=== PATIENT | male | born 1985 | race Caucasian/White ===

== ENCOUNTER 2018-06-10 13:30 | Emergency (ER) | payer OTHER, MEDICAID, SELFPAY ==
[2018-06-10 13:45] VITALS: BP 147/88; PULSE 90; RESP 18; O2SAT 97
--- NOTE | 2018-06-10 15:02 | ED.RECABL ---
HPI - Recheck/Abnormal Lab/Rx General Chief Complaint: Recheck/Abnormal Lab/Rx Stated Complaint: TYPE 1 DIABETIC, OUT OF MEDS. Time Seen by Provider: 06/10/18 14:42 Source: patient Mode of arrival: ambulatory Limitations: no limitations History of Present Illness HPI narrative: This is a 32-year-old male who comes to the emergency department requesting refill for his Levemir as well as NovoLog 70 30. Patient states that he also broke his a calm manner. Patient states he has been on the NovoLog for about a week but he still has the Levemir. He was living in [place] with they had to leave because her housing situation changed. He came to this area as he has family here but has very X restricted finances and he has difficulty paying for his medications. He states in [place] he had was a part of a program that covered his insulin and supplies. Patient states sugars tend to run between 120 and 150. He has not noted any similar symptoms of being in DKA. He was diagnosed at the age of 27 when he was in diabetic ketoacidosis and hospitalized. Patient has not had any increase in thirst, he has not noticed any increase in urination, no abdominal pain, no chest pain or shortness of breath. No fevers. No wounds or injuries to the skin. No other GI or urinary symptoms noted. Related Data Previous Rx's Medication Instructions Recorded blood-glucose meter #1 each 06/10/18 insulin asp prt-insulin aspart See Rx Instructions .ROUTE 06/10/18 [Novolog Mix 70-30 U-100 Insuln] .COMPLEX #10 ml insulin detemir U-100 [Levemir 22 unit SUBCUT BID #10 ml 06/10/18 U-100 Insulin] insulin syringe,safetyneedle #100 each 06/10/18 Review of Systems Review of Systems ROS Unobtainable: All systems reviewed & are unremarkable except as noted in HPI and below Constitutional Denies chills, Denies fatigue, Denies fever(s), Denies headache(s), Denies lethargy and Denies weakness ENT Ears, Nose, Mouth, and Throat: Denies headache(s) and Denies nasal congestion Cardiovascular Denies chest pain, Denies irregular heart rhythm, Denies lightheadedness, Denies palpitations, Denies dyspnea, Denies dyspnea on exertion and Denies orthopnea Respiratory Denies chest congestion, Denies cough, Denies dyspnea, Denies dyspnea on exertion and Denies wheezing Gastrointestinal Gastrointestinal: Denies abdominal pain, Denies change in bowel habits, Denies diarrhea, Denies nausea and Denies vomiting Genitourinary Denies hematuria, Denies difficulty urinating, Denies dysuria, Denies flank pain, Denies urinary frequency, Denies urinary hesitancy, Denies urinary incontinence and Denies urinary urgency Musculoskeletal Denies tingling Integumentary/Breasts Denies non-healing lesions, Denies rash and Denies skin ulcer Neurologic Denies headache(s), Denies sensory deficit, Denies tingling, Denies paresthesias and Denies weakness Endocrine Reports as per HPI, Denies fatigue, Denies polydipsia, Denies polyuria and Denies palpitations Allergic/Immunologic Denies wheezing PFSH Medical History Insulin dependent diabetes mellitus (Acute) Exam Narrative Exam Narrative: GENERAL: Alert and oriented x three, well-nourished, well-appearing male in no acute distress. HEENT: Head normocephalic, atraumatic, EOMI, pupils reactive, face symmetric, moist mucous membranes NECK: Supple, full range of motion CARDIOVASCULAR: Regular rate and rhythm without murmurs, rubs or gallops. RESPIRATORY: Breath sounds equal bilaterally, no wheezes rales or rhonchi. ABDOMEN: Soft, nontender. Normoactive bowel sounds all 4 quadrants. No guarding or rebound, rigidity, no mass : No CVA tenderness EXTREMITIES: Normal range of motion, no clubbing or edema. Neurovascularly intact NEUROLOGICAL: Cranial nerves II through XII grossly intact. Moving all extremities SKIN: Warm, dry, no petechiae, no rashes or lesions. Initial Vital Signs Initial Vital Signs: Vital Signs Pulse Rate 90 06/10/18 13:45 Respiratory Rate 18 06/10/18 13:45 Blood Pressure 147/88 H 06/10/18 13:45 Pulse Oximetry 97 06/10/18 13:45 Course Orders Ordered: ED Orders 06/10/18 15:13 Consult to Service Order Expediter Stat Vital Signs - 8 hr 06/10/18 13:45 06/10/18 15:48 Pulse Rate 90 97 H Respiratory Rate 18 16 Blood Pressure [Right Arm] 147/88 H 132/85 Pulse Oximetry 97 97 MDM - Recheck/Abnormal Lab/Rx Differential Diagnosis Likely encounter for medication refill and other (hyperglycemia) Lab Data Attestation: I reviewed the patient's lab results. Point of Care Testing Glucose POC 318 MDM Narrative Medical decision making narrative: utility worker production was contacted to see if there are any program to help patient obtain his insulin and supplies the either reduced or free. [facility] and they will see if they can run the prescriptions as patient has Medicaid to see if they are covered for the patient. He was given a prescription for Levemir as well as NovoLog. He states he does a sliding scale based on his sugars and carb counting. The patient seems quite knowledgeable about his medications. He did state he broke his glucometer so is given a prescription for this as well as syringes and needles. Patient also has a number for [email or web address] that can possibly help with free medications. Discharge Plan Departure Patient Disposition: Home Clinical Impression: Encounter for medication refill, Hyperglycemia Discharge Date/Time: 06/10/18 16:33 Interventions: ED Discharge Assessment Last Done: 06/10/18 16:32 Instructions: DI for Hyperglycemia -- Adult Activity Restrictions/Additional Instructions: Follow up with primary care for future medication refills. Continue your levemir 22 units in the morning and evenings. Continue your Novolog 70/30 on sliding scale as prescribed. Use glucometer prior to meals and prior to sleep daily. Return for worsening sugars, abdominal pain, persistent vomiting, vision changes, frequent urination, altered mental status, severe headaches or other new or concerning changes. Prescriptions: New Levemir U-100 Insulin 100 unit/mL solution 22 unit SUBCUT BID Qty: 10 RF: 3 Novolog Mix 70-30 U-100 Insuln 100 unit/mL (70-30) solution See Rx Instructions .ROUTE .COMPLEX Qty: 10 RF: 3 blood-glucose meter kit .ROUTE .MEDSUPPLY Qty: 1 RF: 0 insulin syringe,safetyneedle 0.3 mL 29 x 1/2 syringe .ROUTE .MEDSUPPLY Qty: 100 RF: 3 Referrals: [facility] [Provider Group] [facility] [Provider Group] [facility] [Provider Group] [facility] [Provider Group] [facility] [Provider Group] Carley Lobo DO [Emergency Provider] -
--- NOTE | 2018-06-10 15:47 | ED_ITS ---
HPI - Recheck/Abnormal Lab/Rx General Chief Complaint: Recheck/Abnormal Lab/Rx Stated Complaint: TYPE 1 DIABETIC, OUT OF MEDS. Time Seen by Provider: 06/10/18 14:42 Source: patient Mode of arrival: ambulatory Limitations: no limitations History of Present Illness HPI narrative: This is a 32-year-old male who comes to the emergency department requesting refill for his Levemir as well as NovoLog 70 30. Patient states that he also broke his a calm manner. Patient states he has been on the NovoLog for about a week but he still has the Levemir. He was living in [place] with they had to leave because her housing situation changed. He came to this area as he has family here but has very X restricted finances and he has difficulty paying for his medications. He states in [place] he had was a part of a program that covered his insulin and supplies. Patient states sugars tend to run between 120 and 150. He has not noted any similar symptoms of being in DKA. He was diagnosed at the age of 27 when he was in diabetic ketoacidosis and hospitalized. Patient has not had any increase in thirst, he has not noticed any increase in urination, no abdominal pain, no chest pain or shortness of breath. No fevers. No wounds or injuries to the skin. No other GI or urinary symptoms noted. Related Data Previous Rx's Medication Instructions Recorded blood-glucose meter #1 each 06/10/18 insulin asp prt-insulin aspart See Rx Instructions .ROUTE 06/10/18 [Novolog Mix 70-30 U-100 Insuln] .COMPLEX #10 ml insulin detemir U-100 [Levemir 22 unit SUBCUT BID #10 ml 06/10/18 U-100 Insulin] insulin syringe,safetyneedle #100 each 06/10/18 Review of Systems Review of Systems ROS Unobtainable: All systems reviewed & are unremarkable except as noted in HPI and below Constitutional Denies chills, Denies fatigue, Denies fever(s), Denies headache(s), Denies lethargy and Denies weakness ENT Ears, Nose, Mouth, and Throat: Denies headache(s) and Denies nasal congestion Cardiovascular Denies chest pain, Denies irregular heart rhythm, Denies lightheadedness, Denies palpitations, Denies dyspnea, Denies dyspnea on exertion and Denies orthopnea Respiratory Denies chest congestion, Denies cough, Denies dyspnea, Denies dyspnea on exertion and Denies wheezing Gastrointestinal Gastrointestinal: Denies abdominal pain, Denies change in bowel habits, Denies diarrhea, Denies nausea and Denies vomiting Genitourinary Denies hematuria, Denies difficulty urinating, Denies dysuria, Denies flank pain, Denies urinary frequency, Denies urinary hesitancy, Denies urinary incontinence and Denies urinary urgency Musculoskeletal Denies tingling Integumentary/Breasts Denies non-healing lesions, Denies rash and Denies skin ulcer Neurologic Denies headache(s), Denies sensory deficit, Denies tingling, Denies paresthesias and Denies weakness Endocrine Reports as per HPI, Denies fatigue, Denies polydipsia, Denies polyuria and Denies palpitations Allergic/Immunologic Denies wheezing PFSH Medical History Insulin dependent diabetes mellitus (Acute) Exam Narrative Exam Narrative: GENERAL: Alert and oriented x three, well-nourished, well- appearing male in no acute distress. HEENT: Head normocephalic, atraumatic, EOMI, pupils reactive, face symmetric, moist mucous membranes NECK: Supple, full range of motion CARDIOVASCULAR: Regular rate and rhythm without murmurs, rubs or gallops. RESPIRATORY: Breath sounds equal bilaterally, no wheezes rales or rhonchi. ABDOMEN: Soft, nontender. Normoactive bowel sounds all 4 quadrants. No guarding or rebound, rigidity, no mass : No CVA tenderness EXTREMITIES: Normal range of motion, no clubbing or edema. Neurovascularly intact NEUROLOGICAL: Cranial nerves II through XII grossly intact. Moving all extremities SKIN: Warm, dry, no petechiae, no rashes or lesions. Initial Vital Signs Initial Vital Signs: Vital Signs Pulse Rate 90 06/10/18 13:45 Respiratory Rate 18 06/10/18 13:45 Blood Pressure 147/88 H 06/10/18 13:45 Pulse Oximetry 97 06/10/18 13:45 Course Orders Ordered: ED Orders 06/10/18 15:13 Consult to Supervisor [employer] Stat Vital Signs - 8 hr 06/10/18 13:45 06/10/18 15:48 Pulse Rate 90 97 H Respiratory Rate 18 16 Blood Pressure [Right Arm] 147/88 H 132/85 Pulse Oximetry 97 97 MDM - Recheck/Abnormal Lab/Rx Differential Diagnosis Likely encounter for medication refill and other (hyperglycemia) Lab Data Attestation: I reviewed the patient's lab results. Point of Care Testing Glucose POC 318 MDM Narrative Medical decision making narrative: residential worker was contacted to see if there are any program to help patient obtain his insulin and supplies the either reduced or free. [facility] and they will see if they can run the prescriptions as patient has Medicaid to see if they are covered for the patient. He was given a prescription for Levemir as well as NovoLog. He states he does a sliding scale based on his sugars and carb counting. The patient seems quite knowledgeable about his medications. He did state he broke his glucometer so is given a prescription for this as well as syringes and needles. Patient also has a number for [employer] that can possibly help with free medications. Discharge Plan Departure Patient Disposition: Home Clinical Impression: Encounter for medication refill, Hyperglycemia Discharge Date/Time: 06/10/18 16:33 Interventions: ED Discharge Assessment Last Done: 06/10/18 16:32 Instructions: DI for Hyperglycemia -- Adult Activity Restrictions/Additional Instructions: Follow up with primary care for future medication refills. Continue your levemir 22 units in the morning and evenings. Continue your Novolog 70/30 on sliding scale as prescribed. Use glucometer prior to meals and prior to sleep daily. Return for worsening sugars, abdominal pain, persistent vomiting, vision changes, frequent urination, altered mental status, severe headaches or other new or concerning changes. Prescriptions: New Levemir U-100 Insulin 100 unit/mL solution 22 unit SUBCUT BID Qty: 10 RF: 3 Novolog Mix 70-30 U-100 Insuln 100 unit/mL (70-30) solution See Rx Instructions .ROUTE .COMPLEX Qty: 10 RF: 3 blood-glucose meter kit .ROUTE .MEDSUPPLY Qty: 1 RF: 0 insulin syringe,safetyneedle 0.3 mL 29 x 1/2 syringe .ROUTE .MEDSUPPLY Qty: 100 RF: 3 Referrals: [facility] [Provider Group] [facility] [Provider Group] [facility] [Provider Group] [facility] [Provider Group] [facility] [Provider Group] Carley Lobo DO [Emergency Provider] -
[2018-06-10 15:48] VITALS: BP 132/85; PULSE 97; RESP 16; O2SAT 97
--- NOTE | 2018-06-10 15:48 | PC.NURSE ---
Spoke w/ [place] @ [facility]. Faxed scripts and medicaid information to him. [facility] is going to attempt to run scripts and if there is a co pay. If that fails, will call Shahnaz Noble.
--- NOTE | 2018-06-10 16:26 | PC.NURSE ---
Unable to fill scripts at [place]: Shahnaz Noble unaware of any pt financial assistance program. Pt would like written scripts and [facility]/ [facility]. Discussed [employer] Application. pt has brochure but has not applied. Offered assistance from admissions counselor @ . Pt declined.
== END 2018-06-10 16:33 | disposition home or self-care (01) ==
PROVIDERS: Emergency Provider Emergency Medicine
DX: R73.9 Hyperglycemia, unspecified (principal); Z76.0 Encounter for issue of repeat prescription
CPT/HCPCS: 82962; 99282; 99283